=== PATIENT | female | born 1990 | race Caucasian/White ===

== ENCOUNTER 2024-04-24 06:00 | Inpatient (IN) | payer OTHER ==
[2024-04-24] MEDS ORDERED: OXYTOCIN 10 UNIT/ML 1 ML VIAL IM PRN (06:28)
[2024-04-24] MEDS ORDERED: TERBUTALINE 1 MG/ML VIAL SQ PRN (06:28)
[2024-04-24] MEDS ORDERED: miSOPROStoL 200 MCG TAB PO PRN (06:28)
[2024-04-24] MEDS ORDERED: METHYLERGONOVINE 0.2 MG/ML 1 ML AMP IM PRN (06:28)
[2024-04-24] MEDS ORDERED: TRANEXAMIC 1,000 MG/100ML-NACL 1,000 MG in EMPTY BAG 1 BAG IV PRN (06:28)
[2024-04-24] MEDS ORDERED: CARBOPROST TROMETHAMINE 250 MCG/ML 1 ML AMP IM PRN (06:28)
[2024-04-24] MEDS ORDERED: LIDOCAINE 0.5% (PF) 5 MG/ML (50 ML SDV) SQ PRN (06:28)
[2024-04-24] MEDS ORDERED: miSOPROStoL 200 MCG TAB RECTAL PRN (06:28)
[2024-04-24 06:45] LABS: Basophils % (A) 0 %; Eosinophils # (A) 0.1 k/uL (0-0.7); Eosinophils % (A) 1 %; HCT 31.7 % (34.0-46.0); HGB 10.7 gm/dL (11.4-16.0); Lymphocytes % (A) 25 %; MCH 28.7 pg (25.0-35.0); MCHC 33.7 g/dL (31.0-37.0); Mean Platelet Volume 8.1; Monocytes # (A) 0.4 k/uL (0-1.0); Monocytes % (A) 5 %; Neutrophils # (A) 5.4 k/uL (1.3-7.7); Neutrophils % (A) 67 %; Platelet Count 276 k/uL (150-450); RBC 3.73 m/uL (3.80-5.40); RDW 13.7 % (11.5-15.5); WBC 8.1 k/uL (3.8-10.6)
[2024-04-24] MEDS: LACTATED RINGERS 1,000 ML IV SCH (06:52)
[2024-04-24] MEDS: OXYTOCIN 30 UNITS/500 ML NS 30 UNIT in SALINE 1 500ML.BAG IV SCH (07:29)
[2024-04-24] MEDS ORDERED: SODIUM CHLORIDE 0.9% 250 ML BAG ONE (12:39)
[2024-04-24] MEDS ORDERED: fentaNYL (PF) 50 MCG/ML 5 ML AMP ONE (12:39)
[2024-04-24] MEDS ORDERED: ROPIVACAINE 5 MG/ML 30 ML VIAL ONE (12:39)
[2024-04-24] MEDS ORDERED: ROPIVACAINE 225 MG, fentaNYL (PF). 450 MCG in SODIUM CHLORIDE 0.9% 171 ML EPIDURAL ONE (13:35)
[2024-04-24] MEDS ORDERED: diphenhydrAMINE 25 MG CAP PO PRN (18:44)
[2024-04-24] MEDS ORDERED: diphenhydrAMINE 50 MG/ML 1 ML VIAL IVP PRN ×2 (18:44)
[2024-04-24] MEDS ORDERED: SIMETHICONE 80 MG CHEWABLE PO PRN (18:44)
[2024-04-24] MEDS ORDERED: ZOLPIDEM 5 MG TAB PO PRN (18:44)
[2024-04-24] MEDS ORDERED: ACETAMINOPHEN TAB 325 MG TAB PO PRN (18:44)
[2024-04-24] MEDS ORDERED: LANOLIN CREAM 1 GM TUBE TOPICAL PRN (18:44)
[2024-04-24] MEDS ORDERED: BENZOCAINE/MENTHOL SPRAY 1 GM/SPRAY AEROSOL TOPICAL PRN (18:44)
[2024-04-24] MEDS ORDERED: HYDROCORTISONE 2.5% RECTAL CREAM 30 GM TUBE RECTAL PRN (18:44)
[2024-04-24] MEDS ORDERED: diphenhydrAMINE 50 MG CAP PO PRN (18:44)
--- NOTE | 2024-04-24 18:50 | P.HPOB ---
History of Present Illness H&P Date: 04/24/24 Chief Complaint: IUP at 37 4/7 weeks, maternal anti-E antibodies 33-year-old G3, P2 at 37-4/7 weeks that presents to labor and delivery for medical induction of labor. Patient has known anti-E antibodies that have been followed during the . Maternal- medicine was consulted and recommended following anti-E antibody. For majority of the they have been too low to titer on recent blood draw this week they were noted to be 1-2. Per MFM with this recent change in titer recommendation for delivery. Risks of hydrops and anemia are discussed with patient. Patient has noted good movement, she denies contractions. Recent ultrasound revealing normal growth, normal KRISTAN Review of Systems Constitutional: Denies chills, Denies fatigue, Denies fever Ears, nose, mouth and throat: Denies headache Cardiovascular: Reports leg edema Respiratory: Denies dyspnea Gastrointestinal: Denies constipation, Denies diarrhea, Denies nausea, Denies vomiting Genitourinary: Reports Past Medical History Past Medical History: Asthma History of Any Multi-Drug Resistant Organisms: None Reported Past Surgical History: No Surgical Hx Reported Past Psychological History: No Psychological Hx Reported Smoking Status: Never smoker Past Alcohol Use History: None Reported Past Drug Use History: None Reported - Past Family History Mother Family Medical History: Asthma, Fibromyalgia Father Family Medical History: Diabetes Mellitus Additional Family Medical History / Comment(s): of heart failure Medications and Allergies Home Medications Medication Instructions Recorded Confirmed Type Vit No.179/Iron/Folic 1 tab PO DAILY 04/24/24 04/24/24 History [ Tablet] Allergies Allergy/AdvReac Type Severity Reaction Status Date / Time adhesive Allergy Rash/Hives Verified 04/24/24 06:27 Exam Osteopathic Statement: *. No significant issues noted on an osteopathic structural exam other than those noted in the History and Physical/Consult. Vital Signs Temp Pulse Resp BP Pulse Ox 04/24/24 06:36 96.4 F L 83 16 139/76 97 Intake and Output 04/23/24 04/24/24 04/24/24 22:59 06:59 14:59 Other: Weight 84.368 kg Targeted physical exam is performed this date General Is well-nourished well- developed female in no acute distress, breathing is nonlabored, heart has a regular rate and rhythm, abdomen is gravid and appropriate for gestational age, on cervical exam she is 1 thick -3 vertex presentation amniotomy is performed and clear fluid was obtained. heart tones noted to be category 1 and she is khang irregularly. 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 Patient is counseled on blood draw and concerns for hydrops and anemia. Patient consents to induction of labor. Patient is admitted and Pitocin induction of labor has begun. Patient underwent amniotomy and clear fluid was obtained. Patient does desire epidural when appropriate.
--- NOTE | 2024-04-24 18:50 | P.PROBDLV ---
Vaginal Delivery Note - . Vaginal Delivery Note: 33-year-old G3, P2 at 37-4/7 weeks that presented to labor and delivery for induction of labor secondary to rising titer of anti-E. Patient was admitted to labor and delivery and Pitocin induction of labor was begun. Patient underwent amniotomy and clear fluid was obtained. Patient did become uncomfortable and request epidural. Epidural was placed without difficulty by the anesthesia department. Patient made progress toward complete dilation. Once completely d ilated patient began pushing and had a normal spontaneous vaginal delivery of a viable male at 1819, weight of 6 pounds 6 ounces, Apgars of 8 and 9 at 1 and 5 minutes respectively. The umbilical heart was then doubly clamped and cut and the infant was handed off to waiting RN, spontaneous cry was appreciated. The placenta was delivered spontaneously intact with a three-vessel cord being n oted. On inspection the patient's vaginal vault a second-degree midline laceration was appreciated. This was repaired in the usual fashion with 3-0 Rapide. Uterus was noted to be firm and below the umbilicus. All counts noted correct x 2 at the end of delivery. Patient and tolerated delivery well and are resting comfortably.
[2024-04-24] MEDS: SENNOSIDES-DOCUSATE SODIUM 1 EACH TAB PO SCH (22:10)
[2024-04-24] MEDS: IBUPROFEN 600 MG TAB PO SCH (22:10)
[2024-04-25 01:43] VITALS: RESP 16
[2024-04-25 06:23] LABS: Basophils % (A) 0 %; Eosinophils # (A) 0.1 k/uL (0-0.7); Eosinophils % (A) 1 %; HCT 30.1 % (34.0-46.0); HGB 10.3 gm/dL (11.4-16.0); Lymphocytes % (A) 22 %; MCHC 34.2 g/dL (31.0-37.0); MCV 84.8 fL (80.0-100.0); Mean Platelet Volume 8.4; Monocytes # (A) 0.4 k/uL (0-1.0); Monocytes % (A) 4 %; Neutrophils # (A) 6.8 k/uL (1.3-7.7); Neutrophils % (A) 72 %; Platelet Count 222 k/uL (150-450); RBC 3.55 m/uL (3.80-5.40); WBC 9.4 k/uL (3.8-10.6)
[2024-04-25] MEDS: PRENATAL VIT-IRON-FOLIC ACID 1 EACH TABLET PO SCH (08:30)
--- NOTE | 2024-04-25 10:06 | P.PNOBGVD ---
Subjective - Subjective Principal diagnosis: day #1, normal spontaneous vaginal delivery Interval history: Patient is doing well. She is ambulating voiding without difficulty. Is minimal to moderate. She is breast-feeding and bottlefeeding. Patient reports: Reports appetite normal, Reports voiding normally, Reports pain well controlled, Reports ambulating normally : doing well (Awaiting spontaneous void) Objective - Latest Vital Signs Latest vital signs: Vital Signs Temp Pulse Resp BP Pulse Ox 04/25/24 08:00 99 F 66 16 111/65 04/25/24 00:00 97.9 F 75 16 119/62 97 04/24/24 20:46 97.0 F L 71 15 142/68 04/24/24 20:31 84 16 128/68 04/24/24 20:16 78 15 126/58 04/24/24 20:01 80 16 112/57 04/24/24 19:46 80 15 133/58 04/24/24 19:31 85 16 143/68 04/24/24 19:16 77 16 133/97 04/24/24 19:00 88 16 139/87 04/24/24 18:46 98.3 F 94 16 138/82 Intake and Output 04/24/24 04/25/24 04/25/24 22:59 06:59 14:59 Output Total 65 Balance -65 Output: Output, Quantitative 65 Blood Loss Other: # Voids 1 1 1 - Exam Extremities: Present: normal. 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
--- NOTE | 2024-04-25 11:53 | P.DS ---
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 Patient was diagnosed in the beginning of and did see [facility] for evaluation of anti-E titer. Titer had been too low to titer and recently nafisa to 1-2 on blood draw. Patient was counseled on rising titer and need for induction of labor. Patient stated understanding and presented to labor and delivery. Patient was admitted and Pitocin induction of labor was begun. Patient underwent amniotomy and clear fluid was obtained. Patient progressed in labor becoming uncomfortable and requesting epidural. Anesthesia did place epidural without difficulty. Patient progressed to complete began pushing and had a normal spontaneous vaginal delivery of a viable male , weight of 6 pounds 6 ounc es. Patient did sustain a second-degree midline laceration which was repaired in the usual fashion. Patient's course has been uneventful. In this day #1 she is ambulating and voiding without difficulty. She is tolerating regular diet without nausea or vomiting. She states her pain is well-controlled. She denies concerns. Patient Condition at Discharge: Good Plan - Discharge Summary New Discharge Prescriptions: No Action Vit No.179/Iron/Folic [ Tablet] 1 tab PO DAILY Discharge Medication List Vit No.179/Iron/Folic [ Tablet] 1 tab PO DAILY 04/24/24 [History] Follow up Appointment(s)/Referral(s): Ligia Gunderson DO [Doctor of Osteopathic Medicine] - 06/08/24 1:00 pm Patient Instructions/Handouts: Vaginal Delivery (DC), Vaginal Delivery (GEN) Activity/Diet/Wound Care/Special Instructions: No tub baths or intercourse until 6 weeks . Waea-eey-wkkdimt ibuprofen 600 mg or 3 tablets every 6 hours as needed for pain. Patient is to follow-up in 6 weeks for routine check. Should she have any concerns prior to this visit she is urged to call the office. Discharge Disposition: HOME SELF-CARE
[2024-04-26 09:33] VITALS: BP 118/68; PULSE 82; TEMP 98.3
== END 2024-04-26 11:19 | disposition home or self-care (01) | DRG 807 ==
LOC: 4FBP 06:00
PROVIDERS: ADMIT Obstetrics & Gynecology Obstetrics; ATTEND Obstetrics & Gynecology Obstetrics
PROC: 0KQM0ZZ Repair Perineum Muscle, Open Approach (ICD-10-PCS; principal; 2024-04-24)
PROC: 3E033VJ Introduction of Other Hormone into Peripheral Vein, Percutaneous Approach (ICD-10-PCS; principal; 2024-04-24)
PROC: 10E0XZZ Delivery of Products of Conception, External Approach (ICD-10-PCS; principal; 2024-04-24)
PROC: 10907ZC Drainage of Amniotic Fluid, Therapeutic from Products of Conception, Via Natural or Artificial Opening (ICD-10-PCS; principal; 2024-04-24)
DX: O36.1930 Maternal care for other isoimmunization, third trimester, not applicable or unspecified (principal); O70.1 Second degree perineal laceration during delivery; O99.52 Diseases of the respiratory system complicating childbirth; J45.909 Unspecified asthma, uncomplicated; Z28.310 Unvaccinated for COVID-19; Z3A.37 37 weeks gestation of pregnancy; Z37.0 Single live birth
CPT/HCPCS: 85025; 86850; 86870; 86880; 86900; 86901

== ENCOUNTER → 2024-10-17 | Outpatient (CLI) | payer OTHER ==
[2024-10-18 06:35] LABS: HCT 41.7 % (37.2-46.3); HGB 13.1 g/dL (12.0-15.0); MCH 26.4 pg (27.0-32.0); MCHC 31.4 g/dL (32.0-37.0); MCV 83.9 FL (80.0-97.0); Mean Platelet Volume 10.9 FL (9.5-12.2); NRBC Per 100 WBC 0 X 10*3/uL (0.00-0.01); Platelet Count 325 X 10*3/uL (140-440); RBC 4.97 X 10*6/uL (4.10-5.20); RDW 13.2 % (11.5-14.5); WBC 7.56 X 10*3/uL (4.50-10.00)
[2024-10-18 06:36] LABS: Basophils # (A) 0.04 X 10*3/uL (0.00-0.10); Basophils % (A) 0.5 %; Eosinophils # (A) 0.27 X 10*3/uL (0.04-0.35); Eosinophils % (A) 3.6 %; Lymphocytes # (A) 2.84 X 10*3/uL (0.90-5.00); Lymphocytes % (A) 37.6 %; Monocytes # (A) 0.42 X 10*3/uL (0.20-1.00); Monocytes % (A) 5.6 %; Neutrophils # (A) 3.97 X 10*3/uL (1.80-7.70); Neutrophils % (A) 52.4 %
== END | disposition home or self-care (01) ==
LOC: LABPAT 10:30
PROVIDERS: ATTEND Obstetrics & Gynecology Obstetrics
DX: Z01.812 Encounter for preprocedural laboratory examination (principal)
CPT/HCPCS: 85025

== ENCOUNTER 2024-10-22 06:20 | Day surgery (SDC) | payer OTHER ==
[2024-10-16 15:11] VITALS: BMI 30.9
[~2024-10-22 06:20] MED LIST: LIDOCAINE 1% (10MG/ML) FOR IV START INTRADERMA PRN; Pre Op ABX Message 1 EACH MISC MISCELLANE ONE
[2024-10-22] MEDS: LACTATED RINGERS 1,000 ML IV ONE (06:49)
[2024-10-22] MEDS ORDERED: fentaNYL (PF) 50 MCG/ML 2 ML AMP IV PRN (07:00)
[2024-10-22] MEDS ORDERED: HYDROmorphone 0.5 MG/0.5 ML SYRINGE IVP PRN (07:00)
[2024-10-22] MEDS: DEXAMETHASONE SOD PHOSPHATE 4 MG/ML 1 ML VIAL IV ONE (07:10)
[2024-10-22] MEDS: ONDANSETRON 4 MG/2 ML VIAL IVP ONE (07:10)
[2024-10-22] MEDS: LACTATED RINGERS 1,000 ML IV SCH (07:10)
[2024-10-22] MEDS ORDERED: LIDOCAINE 1% INJ 10MG/ML (20 ML MDV) ONE (07:27)
[2024-10-22] MEDS ORDERED: GLYCOPYRROLATE 0.2 MG/ML 2 ML VIAL ONE (07:27)
[2024-10-22] MEDS ORDERED: KETOROLAC 15 MG/ML 1 ML VIAL ONE (07:27)
[2024-10-22] MEDS ORDERED: fentaNYL (PF) 50 MCG/ML 2 ML AMP ONE (07:27)
[2024-10-22] MEDS ORDERED: ROCURONIUM 10 MG/ML (5 ML VIAL) IV ONE (07:27)
[2024-10-22] MEDS ORDERED: NEOSTIGMINE 1 MG/ML 10 ML VIAL ONE (07:27)
[2024-10-22] MEDS ORDERED: MIDAZOLAM 2 MG/2 ML VIAL ONE (07:27)
[2024-10-22] MEDS ORDERED: PROPOFOL 10 MG/ML 20 ML VIAL IV ONE (07:27)
[2024-10-22] MEDS ORDERED: SUCCINYLCHOLINE CHLORIDE 200 MG/10 ML VIAL IV ONE (07:27)
[2024-10-22] MEDS: BUPIVACAINE (PF) 0.25% 30 ML VIAL SQ ONE ×2 (07:30→08:12)
[2024-10-22 08:30] VITALS: TEMP 96.9
--- NOTE | 2024-10-22 08:31 | P.OP ---
Date of Procedure: 10/22/24 Preoperative Diagnosis: Family-planning, undesired fertility Postoperative Diagnosis: Same Procedure(s) Performed: Operative laparoscopy with bilateral salpingectomy Anesthesia: IRINAA Surgeon: Ligia Gunderson Estimated Blood Loss (ml): 10 IV fluids (ml): 400 Urine output (ml): 100 Pathology: other (Bilateral fallopian tubes) Condition: stable Disposition: PACU Indications for Procedure: Undesired fertility, family-planning complete Operative Findings: Normal pelvic anatomy Description of Procedure: Patient was taken back to the operating room after informed consent was obtained in the preoperative area. Patient was prepped and draped in normal sterile fashion in the dorsolithotomy position. A weighted speculum is placed in the posterior vaginal vault the antilipid the cervix visualized and grasped with a single-tooth tenaculum. An acorn uterine manipulator was then advanced into the cervix as a means to manipulate the uterus throughout the procedure. The bladder was then drained for 100 cc of clear yellow urine via red rubber catheter. Attention turned to the abdomen where in the umbilical fold a small skin incision is made. Through this incision the Veress needle is placed. Once the Veress needle deemed to be in appropriate position with a drop of CO2 pressure with the insufflation of CO2 gas CO2 insufflation was allowed to occur. Approximately 3 L of gas were used to obtain pneumoperitoneum. At this time a 5 mm trocar and sleeve with the laparoscope in place was placed through the skin incision toward the pneumoperitoneum. The above-noted findings are visualized. At this point the additional port sites are placed at approximately 10 cm lateral and 3 cm inferior the midline port on the right side an 8 mm port is placed under direct visualization in the left thigh a 5 mm port is placed under direct visualization. The left fallopian tube was noted to have a small filmy adhesion this was taken down sharply the tube was elevated and transected hemostasis was appreciated. This was then repeated on the opposite side. Both tubal sites appeared hemostatic after transection. A small amount of blood was noted in the posterior cul-de-sac therefore this was suctioned no bleeding was appreciated. Hemostasis was noted once again at the tubal sites. All instruments were removed from the patient's abdomen. Skin incisions were closed with 4-0 Vicryl in a subcuticular fashion Steri-Strips and sterile dressings were applied. The single-tooth tenaculum was taken off of the anterior lip the cervix after the acorn manipulator was removed. Small amount of bleeding was noted therefore silver nitrate was placed on tenaculum sites. Hemostasis was then appreciated. All counts were noted be correct x 2 at the end of the procedure. Patient tolerated procedure well and was taken the recovery room awake in stable condition
[2024-10-22 08:48] VITALS: RESP 16
[2024-10-22 09:22] VITALS: BP 130/85; PULSE 58
== END 2024-10-22 09:45 | disposition home or self-care (01) ==
LOC: OR 06:20
PROVIDERS: ATTEND Obstetrics & Gynecology Obstetrics
DX: Z30.2 Encounter for sterilization (principal); N83.8 Other noninflammatory disorders of ovary, fallopian tube and broad ligament
CPT/HCPCS: 81025; 88302; 58661; J2250; J0330; J1100; J2710; J2405; J2003; J3010; J1885; J2704; J0665; J1596